=== PATIENT | male | born 1950 | race Caucasian/White ===

== ENCOUNTER 2021-04-25 11:52 | Outpatient (CLI) | payer MEDICARE, SELFPAY ==
[2021-04-25 13:05] LABS: Influenza A QL RT-PCR Negative (Negative); Influenza B QL RT-PCR Negative (Negative); SARS-CoV-2 RNA PCR Negative (Negative)
== END 2021-04-25 11:53 | disposition home or self-care (01) ==
LOC: CHSLAB 11:56
PROVIDERS: PCP Internal Medicine; Visit Provider Internal Medicine
DX: J06.9 Acute upper respiratory infection, unspecified (principal); Z20.822 Contact with and (suspected) exposure to COVID-19
CPT/HCPCS: 87502; C9803; U0003; U0005

== ENCOUNTER 2021-04-26 13:11 | Outpatient (CLI) | payer MEDICARE, SELFPAY ==
--- NOTE | ~2021-04-26 | XR_ITS ---
XR chest 2V DATE: 04/26/2021 13:47 INDICATION: Cough, fever, polymyalgia TECHNIQUE: 2 views COMPARISON: None FINDINGS: Normal heart size. Mild aortic unfolding. No hilar or mediastinal enlargement. The lungs ar e clear of infiltrate or consolidation. No pleural effusion or pulmonary vascular congestion or pneum othorax. Degenerative spurring of the thoracic spine. Probable cholecystectomy. IMPRESSION: No active cardiopulmonary disease Reviewed, dictated and finalized at location B. ERTY MAINTENANCE SUPERVISOR
--- NOTE | ~2021-04-26 | XR_ITS ---
XR sinus min 3V DATE: 04/26/2021 13:47 INDICATION: Cough. Fever. TECHNIQUE: Ruben Camara, lateral and submental vertical views COMPARISON: None FINDINGS: The paranasal sinuses and mastoid air cells are normally developed and aerated. There is rightward bowing of the nasal septum. The nasal turbinates appear prominent in size. IMPRESSION: There are minimally developed and aerated paranasal sinuses and mastoid air cells Reviewed, dictated and finalized at location B. O VISUAL DIRECTOR IMPRESSION: There are minimally developed and aerated paranasal sinuses and mas toid air cells
[2021-04-26 13:37] LABS: Basophils Absolute Auto 0.07 K/mm3 (0.00-0.10); Basophils Percent Auto 0.6 % (0.0-1.0); Eosinophils Absolute Auto 0.12 K/mm3 (0.02-0.50); Eosinophils Percent Auto 1.1 % (1.0-6.0); Hematocrit 49.6 % (37.0-46.0); Hemoglobin 16.8 g/dL (12.4-15.3); Immature Granulocyte Absolute 0.04 K/mm3 (0.00-0.00); Immature Granulocyte Percent A 0.4 % (0.0-0.0); Lymphocytes Absolute Auto 1.04 K/mm3 (1.10-4.50); Lymphocytes Percent Auto 9.4 % (18.0-42.0); Mean Corpuscular HGB Conc 33.9 g/dL (32.0-36.0); Mean Corpuscular Hemoglobin 31.2 pg (27.0-31.0); Mean Corpuscular Volume 92.2 fL (78.0-102.0); Mean Platelet Volume 8.8 fl (8.7-11.0); Monocytes Absolute Auto 0.64 K/mm3 (0.10-0.90); Monocytes Percent Auto 5.8 % (2.0-11.0); Neutrophils Absolute Auto 9.2 K/mm3 (1.7-7.2); Neutrophils Percent Auto 82.7 % (50.0-70.0); Platelet Count Result 362 K/mm3 (150-420); Red Blood Count 5.38 M/mm3 (4.70-6.10); Red Cell Distribution Width 12.7 % (11.6-14.4); White Blood Count 11.1 K/mm3 (4.8-10.8)
[2021-04-26 13:42] LABS: Add Urine Microscopic? NO; Appearance Urine Clear (Clear); Bilirubin Urine Negative (Negative); Blood Urine Negative (Negative); Color Urine Yellow (Yellow); Glucose Urine UA Negative (Negative); Ketones Urine Negative (Negative); Leukocyte Esterase Ur Negative (Negative); Nitrate Urine Negative (Negative); Protein Urine Negative (Negative); pH Urine 7.5 (5.0-8.0)
[2021-04-26 13:58] LABS: Alanine Aminotransferase 31 U/L (16-63); Albumin Level 3.9 g/dL (3.4-5.0); Alkaline Phosphatase 122 U/L (46-116); Anion Gap 10 mmol/L (8-16); Aspartate Amino Transferase 17 U/L (15-37); Blood Urea Nitrogen 18 mg/dL (7-18); CRP 5.7 mg/dL (0.0-0.9); Calcium 8.7 mg/dL (8.5-10.1); Carbon Dioxide 30 mmol/L (21-32); Chloride 99 mmol/L (98-108); Creatine Kinase 20 U/L (39-308); Estimated Glomerular Filt Rate > 60; Glucose 99 mg/dL (70-99); Osmolality Calculated 289 mOsm/kg (285-295); Potassium 3.7 mmol/L (3.5-5.1); Sodium 139 mmol/L (136-145); Total Protein 7.4 g/dL (6.4-8.2)
== END 2021-04-26 13:12 | disposition home or self-care (01) ==
LOC: CHSLAB 13:14
PROVIDERS: PCP Internal Medicine; Visit Provider Internal Medicine
DX: R50.9 Fever, unspecified (principal); R05.9 Cough, unspecified; M35.3 Polymyalgia rheumatica
CPT/HCPCS: 36415; 70220; 71046; 80053; 81003; 82085; 82550; 85025; 86140

== ENCOUNTER 2021-05-26 09:20 | Outpatient (CLI) | payer MEDICARE, SELFPAY ==
--- NOTE | ~2021-05-26 | US_ITS ---
EXAMINATION: US carotid duplex BI DATE: 05/26/2021 10:52 INDICATION: Transient ischemic episode. Headache. TECHNIQUE: Grayscale, color Doppler, and pulsed Doppler images of the cervical carotid arteries were obtained. The degree of vessel stenosis is placed in one of the following categories: normal, <50%, 5 0-69%, >=70% but less than near-occlusion, near-occlusion, or total occlusion. Note that percent sten osis relative to normal distal artery lumen diameter is indirectly measured from velocity measurement s as described by Jesus, et al. Radiology 2003; 229:340-346. COMPARISON: None. FINDINGS: RIGHT: The right common carotid artery (CCA) peak systolic velocity (PSV) is 77 cm/s. The right internal car otid artery (ICA) PSV is 59 cm/s. The right ICA end-diastolic velocity (EDV) is 14 cm/s. The right IC A/CCA PSV ratio is 0.8. Grayscale and color Doppler images yield an estimate of <50% diameter reducti on from plaque in the ICA. The external carotid artery (ECA) PSV is 73 cm/s. There is antegrade flow in the right vertebral artery. LEFT: The left CCA PSV is 90 cm/s. The left ICA PSV is 67 cm/s. The left ICA EDV is 20 cm/s. The left ICA/C CA PSV ratio is 0.7. Grayscale and color Doppler images yield an estimate of <50% diameter reduction from plaque in the ICA. The ECA PSV is 61 cm/s. There is antegrade flow in the left vertebral artery. IMPRESSION: 1. <50% stenosis from minimal plaque in the right internal carotid artery. 2. <50% stenosis from minimal plaque in the left internal carotid artery. Reviewed, dictated and finalized at location A. IAC CATHETERIZATION TECHNOLOGIST
--- NOTE | 2021-05-26 09:30 | ECHO_ITS ---
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 Strain analysis performed. Summary 1. Complete two-dimensional, color flow and Doppler transthoracic echocardiogram is performed. 2. Left ventricular chamber dimension is normal. 3. Left ventricular systolic function is normal, estimated at 60-65%. 4. The left ventricular diastolic function is grade I diastolic dysfunction. 5. E/e' 6 is not elevated. 6. Global longitudinal strain is abnormal at -15.5%. 7. There is mild aortic valve regurgitation. 8. The aortic root size at the sinus of Valsalva is moderately dilated at 4.8 cm. Left Ventricle E/e' 6 is not elevated. Global longitudinal strain is abnormal at -15.5%. Left ventricular chamber dimension is normal. Left ventricular systolic function is normal, estimated at 60-65%. The left ventricular diastolic function is grade I diastolic dysfunction. Right Ventricle Right ventricular systolic function is normal and with normal TAPSE 1.9 cm.. Right ventricular chamber dimension is normal. Left Atria Left atrial chamber dimension is normal. Right Atria Right atrial chamber dimension is normal. Aortic Valve The aortic valve is trileaflet. There is no aortic valve stenosis. There is mild aortic valve regurgitation. Pulmonic Valve There is no pulmonic regurgitation. Mitral Valve There is no mitral valve stenosis. There is no mitral valve regurgitation. Tricuspid Valve There is no tricuspid valve regurgitation. Pericardium/Pleural There is no pericardial effusion. Inferior Vena Cava Normal inferior vena cava with >50% collapse upon inspiration consistent with normal right atrial pressure, 5 mmHg. Aorta The aortic root size at the sinus of Valsalva is moderately dilated at 4.8 cm. Left Ventricular Outflow Tract Name Value Normal LVOT 2D LVOT Diameter 2.0 cm LVOT Doppler LVOT Peak Velocity 102 cm/s LVOT Peak Gradient 4 mmHg LVOT Mean Gradient 2 mmHg LVOT VTI 24 cm LVOT VTI/AV VTI Ratio 0.9 LVOT Stroke Volume 74 ml Mitral Valve Name Value Normal MV Doppler MV Decel Dixon 253 cm/s2
--- NOTE | 2021-05-26 10:45 | ECG_ITS ---
Measurements Intervals [place] Rate: 71 P: 53 TX: 233 QRS: -7 QRSD: 113 T: 39 QT: 365 QTc: 397 Interpretive Statements SINUS RHYTHM WITH FIRST DEGREE AV BLOCK INCOMPLETE RIGHT BUNDLE BRANCH BLOCK ABNORMAL ECG Electronically Signed On 05-26-2021 10:49:59 MANAGER OF PHARMACY by Hugo Calix D.O.
== END 2021-05-26 09:21 | disposition home or self-care (01) ==
LOC: CHSIMG 09:21
PROVIDERS: PCP Internal Medicine; Visit Provider Internal Medicine
DX: G45.9 Transient cerebral ischemic attack, unspecified (principal); R51.9 Headache, unspecified
CPT/HCPCS: 93005; 93306; 93880

== ENCOUNTER 2021-05-27 06:53 | Outpatient (CLI) | payer MEDICARE, SELFPAY ==
--- NOTE | ~2021-05-27 | MR_ITS ---
EXAMINATION: MR brain/brain stem wo con EXAM DATE: 05/27/2021 08:31 INDICATION: Headache/TIA Headache, Tia TECHNIQUE: Magnetic resonance imaging (MRI) of the brain/brain stem obtained without contrast. Haley al T1, axial diffusion, gradient echo (T2*), T1, T2, FLAIR sequences obtained. There is no prior st udy for comparison. FINDINGS: There are no areas of restricted diffusion to suggest acute infarction. There is no acute hemorrhage seen on the T2*, a hemosiderin sensitive sequence. No intraparenchymal brain mass lesion. There is minimal periventricular and subcortical T2/FLAIR signal hyperintensity, nonspecific but pro bably related to small vessel ischemic disease (microangiopathy). There is mild prominence of the s ulci and ventricles related to cerebral atrophy. There are no extra-axial collections. Flow voids are seen in the cerebral arteries on the T2-weighted sequences consistent with their expected patency . The orbits are unremarkable. Soft tissue is unremarkable. IMPRESSION: 1. No acute intracranial findings. 2. Mild age related findings. Reviewed, dictated and finalized at location A. TLE VAN DRIVER
== END 2021-05-27 06:54 | disposition home or self-care (01) ==
LOC: CHSIMG 06:54
PROVIDERS: PCP Internal Medicine; Visit Provider Internal Medicine
DX: G45.9 Transient cerebral ischemic attack, unspecified (principal); R51.9 Headache, unspecified
CPT/HCPCS: 70551